=== PATIENT | female | born 1955 | race Caucasian/White ===

== ENCOUNTER 2016-11-15 16:28 | Observation (INO) ==
[2016-11-15] MEDS ORDERED: 0.9 % Sodium Chloride 1,000 ML IVC ONE (17:04)
[2016-11-15] MEDS ORDERED: *HR* Adenosine 6 MG/2 ML VIAL IVP ONE (17:05)
[2016-11-15 17:08] LABS: BUN/Creatinine Ratio 11 (6-26); Blood Urea Nitrogen 9 mg/dL (7-20); Calcium 9.9 mg/dL (8.6-10.8); Carbon Dioxide 21 mEq/L (19-29); Chloride 108 mEq/L (98-109); Glucose 109 mg/dL (70-99); Osmolality,Calculated 295 (280-300); Potassium 5.1 mEq/L (3.5-4.5); Sodium 143 mEq/L (136-145); eGFR For African Americans > 60 (> 60); eGFR For Non-African Americans > 60 (> 60)
--- NOTE | 2016-11-15 17:11 | Emergency Department Note ---
Disposition Clinical Impression: Atypical chest pain, SVT (supraventricular tachycardia) Disposition: Admitted As Inpatient Condition: Good Referrals: Genevieve Bangura [Primary Care Provider] - Forms: ED Satisfaction Letter Time of Disposition: 18:32 (Dennis Banks) Chest Pain HPI - General Chief Complaint: ED Chest Pain Stated Complaint: SVT/CP Time Seen by Provider: 11/15/16 16:35 Source: patient, EMS Mode of arrival: EMS Limitations: no limitations Vital Signs Reviewed: Yes Nursing Notes Reviewed: Yes - History of Present Illness HPI Narrative: 61-year-old female sudden onset of palpitations and shortness of breath patient states she has had this in the past has had a history of SVT says normally medication controls it she denies any blurred vision double vision loss addition she has had some dizziness palpitations but no cough no hemoptysis no diarrhea melena hematochezia or hematemesis denies any additional complaints the entire review of system Pt complaint: chest pain, other (palitations) Onset (ago): hour(s) Duration: constant Onset: during rest Pain Location: substernal Severity: mild Severity scale (1-10): 0 Quality: heaviness Improves with: nothing Worsens with: palpation, movement Associated symptoms: Reports: dyspnea, palpitations. Denies: nausea, vomiting, diaphoresis, sense of impending doom, syncope, fever, cough, leg swelling Treatments prior to arrival chest pain: none - Related Data Home Medications Medication Instructions Recorded Confirmed Acetaminophen/Butalbital/Caffe 1 each PO Q6HR PRN 02/22/15 11/15/16 [Fioricet] Gabapentin [Neurontin] 600 mg PO TID 02/22/15 11/15/16 Paroxetine [Paxil] 40 mg PO DAILY 02/22/15 11/15/16 TraZODone 50 mg PO HS 02/22/15 05/08/16 Metoprolol [Lopressor] 25 mg PO BID 05/08/16 11/15/16 Previous Rx's Medication Instructions Recorded Acetaminophen [Tylenol] 650 mg PO Q6HR #60 tablet 02/22/15 predniSONE [PredniSONE] 40 mg PO DAILY 5 Days 05/08/16 Allergies Allergy/AdvReac Type Severity Reaction Status Date / Time Penicillins [PCN] Allergy Anaphylaxis Verified 06/07/15 22:22 aspirin AdvReac Nausea Verified 06/07/15 22:22 All systems ED: reviewed and negative except as stated. Constitutional: Reports: weakness. Denies: fever, chills Eyes: Denies: eye pain ENT ED: Denies: ear pain Cardiovascular: Reports: chest pain, palpitations Respiratory: Denies: cough Gastrointestinal: Denies: abdominal pain Genitourinary: Denies: urgency Musculoskeletal: Denies: back pain Integumentary: Denies: rash Neurological: Denies: headache Psychiatric: Denies: anxiety Endocrine: Denies: fatigue Hematological/Lymphatic: Denies: easy bleeding Allergic/Immunologic: Denies: facial swelling Chest Pain PMH - Past Medical History Medical history: Reports: hypertension, migraine Surgical history: Reports: cholecystectomy, hysterectomy Psychiatric history: Reports: depression - Social History Smoking Status: Current every day smoker Alcohol use: Reports: none Drug use: Reports: none Physical Exam - General Limitations: no limitations General appearance: alert, in no apparent distress, anxious, cachectic - Head Head exam: atraumatic, normocephalic, normal inspection - Eye Eye exam: Present: normal appearance, PERRL, EOMI - ENT ENT exam: normal exam, normal oropharynx, mucous membranes moist, TM's normal bilaterally, normal external ear exam - Neck Neck exam: Present: normal inspection, full ROM, trachea midline - Chest Chest inspection: Present: normal inspection, symmetric chest wall rise - Respiratory Respiratory exam: Present: normal lung sounds bilaterally - Cardiovascular Cardiovascular exam: Present: regular rate, normal rhythm, normal heart sounds - Abdominal Exam Abdominal exam: Present: soft, Non-Tender, normal bowel sounds. Absent: mass, pulsatile mass - Extremities Exam Extremities exam: Present: normal inspection, full ROM, normal capillary refill. Absent: tenderness, joint swelling - Expanded Lower Extremity Exam Neurovascular/Tendon exam: Present: normal capillary refill, normal fine/light touch Gait: observed and normal - Back Exam Back exam: Present: normal inspection, full ROM. Absent: muscle spasm - Neurological Exam Neurological exam: Present: alert, oriented X3, CN II-XII intact, normal gait - Psychiatric Psychiatric exam: Present: normal affect, normal mood - Skin Skin exam: Present: warm, dry, intact, normal color Course Course Narrative: Patient seen and examined IV established patient was given Identicard 6 mg IV push which then spontaneously resolve the patient's heart rate going from 180 down to 90 and then has calmed down at this point to her through is resolving and staying at 90 with a blood pressure 106/88 patient is agreeable staying admitted for observation labs Vital Signs Temperature 98 F 11/15/16 16:34 Pulse Rate 178 11/15/16 16:34 Respiratory Rate 18 11/15/16 16:34 Blood Pressure 107/71 11/15/16 16:34 O2 Sat by Pulse Oximetry 98 11/15/16 16:34 Temperature 98 F 11/15/16 16:34 Pulse Rate 75 11/15/16 17:53 Respiratory Rate 18 11/15/16 17:53 Blood Pressure 97/65 11/15/16 17:53 O2 Sat by Pulse Oximetry 100 11/15/16 17:53 Oxygen Delivery Oxygen Delivery Room Air Chest Pain - MDM Narrative Medical decision making narrative: Palpitations history of SVT atrial fib flutter - Differential Diagnosis Likely: chest pain - Medical Records Medical records reviewed: Yes I reviewed the patient's medical records. - Lab Data Lab results reviewed: Yes I reviewed the patient's lab results. Result diagrams: 11/15/16 16:40 11/15/16 16:40 Lab Results 11/15/16 11/15/16 11/15/16 Range/Units 16:40 16:40 16:40 WBC 10.1 (4.3-11.1) K/mcL RBC 4.86 (3.82-4.97) M/mcL Hgb 15.0 (11.5-15.4) g/dL Hct 44.4 (35.3-44.9) % MCV 91.4 (83.0-100.0) fL MCH 30.9 (28.0-33.3) pg MCHC 33.8 (31.6-35.5) g/dL RDW 13.1 (11.5-14.5) % Plt Count 287 (140-400) K/mcL MPV 9.7 (9.4-12.4) fL Immature Gran % 0.3 (0-4) % Seg Neutrophils % 63.5 % Lymphocytes % 29.7 % Monocytes % 3.8 % Eosinophils % 2.0 % Basophils % 0.7 % Neutrophils # 6.4 (1.6-8.9) K/mcL Lymphocytes # 3.0 (0.6-4.6) K/mcL Monocytes # 0.4 (0.0-1.3) K/mcL Eosinophils # 0.2 (0.0-0.6) K/mcL Basophils # 0.1 (0.0-0.2) K/mcL PT 10.3 (9.4-12.1) Seconds INR 1.0 APTT 35.5 (26.0-36.0) Seconds Sodium 143 (136-145) mEq/L Potassium 5.1 H (3.5-4.5) mEq/L Chloride 108 (98-109) mEq/L Carbon Dioxide 21 (19-29) mEq/L BUN 9 (7-20) mg/dL Creatinine 0.84 (0.57-1.11) mg/dL Est GFR ( Amer) > 60 (> 60) Est GFR (Non-Af Amer) > 60 (> 60) BUN/Creatinine Ratio 11 (6-26) Glucose 109 H (70-99) mg/dL Calculated Osmolality 295 (280-300) Calcium 9.9 (8.6-10.8) mg/dL Troponin I (0-0.03) ng/mL B-Natriuretic Peptide (0-100) pg/mL TSH 0.331 L (0.350-4.840) mcIU/mL 11/15/16 11/15/16 Range/Units 16:40 16:40 WBC (4.3-11.1) K/mcL RBC (3.82-4.97) M/mcL Hgb (11.5-15.4) g/dL Hct (35.3-44.9) % MCV (83.0-100.0) fL MCH (28.0-33.3) pg MCHC (31.6-35.5) g/dL RDW (11.5-14.5) % Plt Count (140-400) K/mcL MPV (9.4-12.4) fL Immature Gran % (0-4) % Seg Neutrophils % % Lymphocytes % % Monocytes % % Eosinophils % % Basophils % % Neutrophils # (1.6-8.9) K/mcL Lymphocytes # (0.6-4.6) K/mcL Monocytes # (0.0-1.3) K/mcL Eosinophils # (0.0-0.6) K/mcL Basophils # (0.0-0.2) K/mcL PT (9.4-12.1) Seconds INR APTT (26.0-36.0) Seconds Sodium (136-145) mEq/L Potassium (3.5-4.5) mEq/L Chloride (98-109) mEq/L Carbon Dioxide (19-29) mEq/L BUN (7-20) mg/dL Creatinine (0.57-1.11) mg/dL Est GFR ( Amer) (> 60) Est GFR (Non-Af Amer) (> 60) BUN/Creatinine Ratio (6-26) Glucose (70-99) mg/dL Calculated Osmolality (280-300) Calcium (8.6-10.8) mg/dL Troponin I 0.01 (0-0.03) ng/mL B-Natriuretic Peptide 236 H (0-100) pg/mL TSH (0.350-4.840) mcIU/mL - Radiology Data Radiology results reviewed: Yes I reviewed the patient's radiology results. - EKG Data EKG attestation: Yes I reviewed and interpreted this EKG. EKG results narrative: SVT rate 172 QRS 121 QT [address] elevation noted it is comparable to the 3 EKGs provided per EMS with heart rates of 168 and 169 squads EKGs are added to the chart Heart Score - Score History: Slightly Suspicious EKG: Normal Age: 45-65 Risk Factors: 1-2 risk factors Troponin: Less than normal limit HEART Score Total: 2 Critical Care Time Critical Care Time: Yes Total Critical Care Time: 15 Attestation: Critical care performed: 15 mins as the results of the svt and need for medication and stabilization of the arrhythmia Time is exclusive of separately billable procedures. Time includes: direct patient care, patient reassessment, coordination of patient care, interpretation of data (laboratory data, radiology data, and respiratory data), review of patient's medical records, medical consultation and documentation of patient care. Procedures included in critical care time: Procedures excluded from critical care time:
[2016-11-15 17:13] LABS: Basophils # 0.1 K/mcL (0.0-0.2); Basophils % 0.7 %; Eosinophils # 0.2 K/mcL (0.0-0.6); Hematocrit 44.4 % (35.3-44.9); Immature Granulocytes % 0.3 % (0-4); Lymphocytes % 29.7 %; Mean Corpuscular HGB Conc 33.8 g/dL (31.6-35.5); Mean Corpuscular Hemoglobin 30.9 pg (28.0-33.3); Mean Corpuscular Volume 91.4 fL (83.0-100.0); Mean Platelet Volume 9.7 fL (9.4-12.4); Monocytes # 0.4 K/mcL (0.0-1.3); Monocytes % 3.8 %; Neutrophils # 6.4 K/mcL (1.6-8.9); Platelet Count 287 K/mcL (140-400); Red Blood Count 4.86 M/mcL (3.82-4.97); Red Cell Distribution Width 13.1 % (11.5-14.5); Segmented Neutrophils % 63.5 %
[2016-11-15 17:14] LABS: Activated Partial Thrombo Time 35.5 Seconds (26.0-36.0); Prothrombin Time 10.3 Seconds (9.4-12.1)
[2016-11-15 17:40] LABS: Thyroid Stimulating Hormone 0.331 mcIU/mL (0.350-4.840)
[2016-11-15] MEDS ORDERED: Aspirin 81 MG TAB.CHEW PO ONE (18:30)
[2016-11-15] MEDS ORDERED: Naloxone 0.4 MG/ML INJ IVP PRN (19:35)
[2016-11-15] MEDS ORDERED: Acetaminophen/Butalbital/CaffeineTABLET PO PRN (19:35)
[2016-11-15] MEDS: Gabapentin 300 MG CAPSULE PO SCH (20:12)
[2016-11-15] MEDS: 0.9 % Sodium Chloride 1,000 ML IVC SCH (20:13)
[2016-11-15] MEDS ORDERED: traZODone 50 MG TABLET PO SCH (21:00)
[2016-11-16] MEDS: Acetaminophen 325 MG TABLET PO SCH ×3 (00:13→10:17)
[2016-11-16] MEDS: 0.9 % Sodium Chloride 1,000 ML IVC SCH ×2 (04:54→14:38)
[2016-11-16 06:24] LABS: BUN/Creatinine Ratio 14 (6-26); Blood Urea Nitrogen 10 mg/dL (7-20); Calcium 8.1 mg/dL (8.6-10.8); Carbon Dioxide 21 mEq/L (19-29); Chloride 115 mEq/L (98-109); Glucose 92 mg/dL (70-99); Osmolality,Calculated 301 (280-300); Potassium 3.8 mEq/L (3.5-4.5); Sodium 146 mEq/L (136-145); eGFR For African Americans > 60 (> 60); eGFR For Non-African Americans > 60 (> 60)
[2016-11-16] MEDS ORDERED: predniSONE 20 MG TABLET PO SCH (09:00)
[2016-11-16] MEDS: Gabapentin 300 MG CAPSULE PO SCH (10:16)
[2016-11-16 11:16] VITALS: BP 105/64
--- NOTE | 2016-11-16 12:05 | Internal Med History&Physical ---
Date of Encounter: 11/16/16 Time of Encounter: 11:20 Assessment and Plan (1) SVT (supraventricular tachycardia) Current visit: Yes Status: Acute Resolved in the ER with administration of Adenocard. I discussed with her attempts at controlling with medication or referral for possible ablation procedure. She has chosen to be referred. Internal Medicine - H&P: HPI Chief complaint: Tachycardia and chest pain Admitted From: Home Plans for Post Hospital Care: Home History of present illness: Ms. Thomas is a 61 year old female who came to emergency room stating she had onset of rapid heartbeat and chest discomfort approximately 10:30 AM while at leisure. When it did not resolve after several hours she came to emergency room. She was found to have SVT. She was given Adenocard and converted to normal sinus rhythm. She is admitted to [facility] floor for ongoing care needs. She states she has had previous similar episodes for 15-20 years. She states they are now occurring up to 3 times per week lasting from a few minutes to several hours. There are no precipitating factors. She is been placed on metoprolol 25 mg twice a day with minimal improvement. She cannot tolerate a higher dose metoprolol because of hypotension. She denies alcohol use. She drinks 6-7 cups of coffee per day and occasional Mountain Dew. She was told in the past she could not have a procedure done to improve/resolve the situation but she did not have insurance at this time and declined further evaluation then. She denies hypertension ME heart failure angina DVT or pulmonary embolus. Past Med Surg Social Fam HX - Past Medical History Medical history: hypertension, migraine Psychiatric history: depression - Past Surgical History Surgical History: cholecystectomy, hysterectomy - Social History Smoking Status: Current every day smoker Packs per day: 1 Smokeless Tobacco Status: No Alcohol use: none Drug use: none - Family History Mother Family Member Ethnicity: Non- Living Status: Age at : 70 Cause of : ME Hx Family Cardiac Disorders: Yes (ME) Father Family Member Ethnicity: Non- Living Status: Age at : 61 Cause of : Lung cancer Hx Family Cancer: Yes (lung cancer) Internal Medicine - H&P: Meds Acetaminophen [Tylenol] 650 mg PO Q6HR #60 tablet 02/22/15 [Rx] Acetaminophen/Butalbital/Caffe [Fioricet] 1 each PO Q6HR PRN 02/22/15 [History] Gabapentin [Neurontin] 600 mg PO TID 02/22/15 [History] Paroxetine [Paxil] 40 mg PO DAILY 02/22/15 [History] TraZODone 50 mg PO HS 02/22/15 [History] Metoprolol [Lopressor] 25 mg PO BID 05/08/16 [History] predniSONE [PredniSONE] 40 mg PO DAILY 5 Days 05/08/16 [Rx] Allergies Penicillins [PCN] Allergy (Verified 06/07/15 22:22) Anaphylaxis aspirin Adverse Reaction (Verified 06/07/15 22:22) Nausea All Systems PM: A 10-system review of systems was performed and is negative for pertinent findings except as documented above in the HPI. Review of systems: Gen.: She states her weight has increased approximately 30 pounds in the past year, unintentionally Cardiovascular: As per history of present illness Respiratory: She smoked since age 19 up to 1-1/2 packs per day. She has not had PFTs and does not wear home oxygen GI: She has had cholecystectomy. She denies disorders of her liver or exocrine pancreas : She denies hematuria dysuria or kidney stones Neurologic: She denies large distribution strokes or seizures Endocrine: She denies diabetes or thyroid disease or hyperlipidemia Hematology/oncology: She denies blood disorders cancers or anemia Psychiatric: She denies anxiety depression or other mental health issues Musk skeletal: She has chronic low back pain. She reports foot and ankle pain in the morning when she first gets up to walk. - Constitutional Vitals: Temp Pulse Resp BP Pulse Ox 97.8 F 65 16 105/64 94 11/16/16 11:13 11/16/16 11:13 11/16/16 11:13 11/16/16 11:13 11/16/16 11:13 Exam: General: She is a well-developed well-nourished female who appears in no severe distress at present time HEENT: Head is atraumatic and normocephalic. Eyes: EOMI. There is no scleral icterus. Mouth: Mucosa is moist. Neck: Supple and nontender. There is no thyromegaly or adenopathy noted. Heart: Regular without murmurs gallops or ectopics Lungs: No wheezes or crackles are heard. Abdomen: Soft and nontender. No masses or guarding are noted. Extremities: There is no cyanosis edema or clubbing noted. Dorsalis pedis and posttibial pulses are 1-2 over 2 bilaterally. Neurologic: Mental status: She is talkative and a good historian. Cranial nerves: Smile is symmetric. Forehead wrinkles bilaterally. Tongue protrudes midline. EOMI. Motor: There is no pronator drift. Cerebellar: Finger to nose is intact bilaterally. Skin: Warm and dry Internal Med - H&P Results - Labs CBC & Chem 7: 11/15/16 16:40 11/16/16 06:00 Labs: BMP 11/16/16 06:00 Sodium 146 H Potassium 3.8 D Chloride 115 H Carbon Dioxide 21 BUN 10 Creatinine 0.72 Glucose 92 Calcium 8.1 L D Cardiac Enzymes 11/15/16 11/16/16 Range/Units 22:57 06:00 Troponin I 0.05 H* 0.04 H* (0-0.03) ng/mL
--- NOTE | 2016-11-16 12:13 | Discharge Summary ---
Date of Encounter: 11/16/16 Time of Encounter: 11:20 - Discharge Diagnosis (1) SVT (supraventricular tachycardia) Priority: Primary Status: Acute - Discharge Medications Home Medications: Acetaminophen [Tylenol] 650 mg PO Q6HR #60 tablet 02/22/15 [Rx] Acetaminophen/Butalbital/Caffe [Fioricet] 1 each PO Q6HR PRN 02/22/15 [History] Gabapentin [Neurontin] 600 mg PO TID 02/22/15 [History] Paroxetine [Paxil] 40 mg PO DAILY 02/22/15 [History] TraZODone 50 mg PO HS 02/22/15 [History] Metoprolol [Lopressor] 25 mg PO BID 05/08/16 [History] predniSONE [PredniSONE] 40 mg PO DAILY 5 Days 05/08/16 [Rx] Allergies/Adverse Reactions: Allergies Penicillins [PCN] Allergy (Verified 06/07/15 22:22) Anaphylaxis aspirin Adverse Reaction (Verified 06/07/15 22:22) Nausea Date of admission: 11/15/16 18:40 Primary care physician: Genevieve Bangura - Patient Status Disposition: Transfer Other Condition: Good - Discharge Instructions Hospital course: Ms. Thomas is a 61 year old female who came to emergency room stating she had onset of rapid heartbeat and chest discomfort approximately 10:30 AM while at leisure. When it did not resolve after several hours she came to emergency room. She was found to have SVT. She was given Adenocard and converted to normal sinus rhythm. She was admitted to [facility] floor for ongoing care needs. Initial orders were written by the emergency room physician. I saw her on November 16 and performed the history and physical. I offered her referral to a cardiac buffing machine operator semiautomatic immediately or a more conservative medical approach by using Lanoxin daily and restricting coffee etc. to see if symptoms resolve. She chose to be referred which I felt was reasonable. There were no beds available at [facility]. I spoke with [facility] and beds were available at [facility]. She will be transferred there for ongoing care needs. - Time Spent with Patient Total time spent providing and/or coordinating discharge services: - Constitutional Vitals: Temp Pulse Resp BP Pulse Ox 97.8 F 65 16 105/64 94 11/16/16 11:13 11/16/16 11:13 11/16/16 11:13 11/16/16 11:13 11/16/16 11:13
--- NOTE | 2016-11-16 15:30 | Electrocardiograph Report ---
[address] [id number] Test Date: 2016-11-15 Pat Name: Allegra Thomas Department: [id number] Room: [facility] Gender: F Parts Cleaner: [id number] : 1955 Requested By: Nikki Amador Order Number: [id number] Reading MD: Chico Rasmussen MD Measurements Intervals [place] Rate: 172 P: PA: 0 QRS: 70 QRSD: 121 T: -1 QT: 261 QTc: 354 Interpretive Statements SHORT R-P SUPRAVENTRICULAR TACHYCARDIA CONSIDER AVRT OR AVNRT AND EP REFERRAL Electronically Signed On 11-16-2016 15:28:49 EDT by Chico Rasmussen MD
== END 2016-11-16 14:39 | disposition short-term general hospital (02) ==
LOC: EMEROOPIK 16:28 → INPPIK 16:28
PROVIDERS: ADMIT Internal Medicine; ATTEND Internal Medicine